=== PATIENT | male | born 1995 | race Caucasian/White ===

== ENCOUNTER 2021-09-14 22:15 | Emergency (ER) | payer SELFPAY ==
[~2021-09-14] VITALS: Ht 188 cm; Wt 87.0 kg
[2021-09-14 22:17] VITALS: BP 150/86
== END 2021-09-14 23:22 | disposition left against medical advice (07) ==
LOC: ER 22:15
DX: Z53.21 Procedure and treatment not carried out due to patient leaving prior to being seen by health care provider (principal); F41.0 Panic disorder [episodic paroxysmal anxiety]